=== PATIENT | female | born 1950 | race Caucasian/White ===

== ENCOUNTER 2020-09-17 12:30 | Outpatient (CLI) | payer MEDICARE, SELFPAY ==
[2020-09-17 13:28] LABS: SARS-CoV-2 Ag Negative (Negative)
== END 2020-09-17 12:31 | disposition home or self-care (01) ==
DX: Z20.828 Contact with and (suspected) exposure to other viral communicable diseases (principal)
CPT/HCPCS: 87426

== ENCOUNTER 2024-02-04 13:36 | Outpatient (RCR) | payer MEDICARE, SELFPAY ==
--- NOTE | 2024-02-04 15:05 | OPREHPOC ---
Outpatient Therapy Plan of Care This is a Multidisciplinary Plan of Care that may contain components documented by all disciplines (PT, OT, and ST.) PT Problem 1 PT Problem #1 Knowledge Deficit PT Goal 1 Goal Patient to demonstrate independence with HEP Target Visit 5 PT Problem 2 PT Problem #2 Impaired Strength PT Goal 1 Goal 1. Patient to demonstrate 5/5 strength of the B LE in order to return to stair navigation at PLOF Target Visit 10 PT Problem 3 PT Problem #3 Impaired Functional Mobil PT Goal 1 Goal 1. Patient to complete 1600' during 6 min walk test to return to grocery shopping 2. Patient to score 24 of Tinetti to demonstrate low fall risk 3. Patient to report ability to complete house hold tasks without instability of the L ankle Target Visit 10
--- NOTE | 2024-02-04 15:05 | PTOPEVAL1 ---
Assessment and note entered by Lawanda Hernandez DPT Evaluation Information Diagnosis L sided weakness Onset 01/29/24 Subjective Information Patient reports she had a stroke in October and was in the hospital for 3 weeks. She reports that most weakness is in the L ankle and L hand. She reports she would be willing do also do OT. She reports she is wearing a brace on the L ankle for stability but reports she can take it off at any time. She reports that walking and general LE weakness are her biggest issues. She reports she lives home alone and is completing all activities. She reports she is back to driving. She has no follow up with MD scheduled. Reported Pain Level Pain Score 0: Self Report Assessment PT Clinical Summary Ms. Quintana is a 73 year old female who presents to PT with L sided weakness following stroke in Oct 2023. She demonstrates decreased L LE strength and impaired ability limiting her ability to navigate prolonged distances, stand for prolonged periods to complete house hold tasks and navigate stairs without onset of fatigue. She would benefit from skilled PT to address impairments and return to PLOF. Plan of Care Interventions Electrical Stimulation,Gait Training,Hot Pack/Cold Pack,Neuro Re-education,Patient/Caregiver Educati ,Therapeutic Activities,Therapeutic Exercise PT Services Indicated Yes Treatment Frequency and 2x weekly for 10 visits Duration These treatments will address the objective and functional deficits as defined above. The patient will be advanced safely and appropriately in order for the patient to progress towards his/her prior level of function. Additional exercises will be introduced and as well as a comprehensive home exercise program upon discharge, if needed, ?to ensure carryover of functional gains achieved in the clinic. This treatment plan has been reviewed and agreement upon by the patient.
--- NOTE | 2024-02-09 11:54 | OTOPEVAL1 ---
Assessment and note entered by Carisa Carbajal OT Evaluation Information Assessment Status Evaluation Diagnosis Stroke Onset October 2023 Subjective Information The patient goes by Luis. The patient stated she had a stroke in October 2023 where she has been experiencing difficulty with L hand. She reported she sometimes drops things at home and can have some numbness occasionally in L hand. She reports that she notices some difficulties with memory and her speech can get slurred when she gets tired with good awareness. Therapist educated patient on speech therapy for speech problems and cognition to address within 6 months to a year of having stroke with best outcomes. OT to address cognition at this time due to not seeing speech therapy; patient educated on importance of therapy. The enjoys playing cards and has a hard time holding them. Reported Pain Level Pain Score 0: Self Report Assessment OT Clinical Summary The patient is a 73 year old female who was referred to outpatient OT due to stroke in October 2023. The patient demonstrates good functional balance during community mobility into therapy gym . 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 The patient requires skilled OT to address fine motor coordination, summer school coordinator/pinch strength and cognition for return to PLOF and increased ability to engage in daily tasks with safety and accuracy. Plan of Care Interventions Therapeutic Exercise,Neuro Re-education, Therapeutic Activities,Cognitive Function,Sensory Integrative Techn,Self-Care/Home Management OT Services Indicated Yes Treatment Frequency and 2x/week for 10 visits. Duration These treatments will address the objective and functional deficits as defined above. The patient will be advanced safely and appropriately in order for the patient to progress towards his/her prior level of function. Additional exercises will be introduced and as well as a comprehensive home exercise program upon discharge, if needed, ?to ensure carryover of functional gains achieved in the clinic. This treatment plan has been reviewed and agreement upon by the patient.
--- NOTE | 2024-03-09 08:52 | PTOPPROG ---
Assessment and note entered by Billy [facility] Evaluation Information Assessment Status Progress Diagnosis L sided weakness Onset 01/29/24 Subjective Information Pt. reports that she is doing better. She reports that she could still benefit from therapy. she notices some remaining weakness in the left leg. She states that would like to continue to improve her l.e. strength. Assessment PT Clinical Summary Pt. demonstrates progress in regards to strength and balance. She still presents with gait and strength deficits indicating need for continued skilled PT. We will continue to address foot clearance and strength to allow for safe and independent IADL's. Plan of Care Interventions Electrical Stimulation,Gait Training,Manual Therapy,Neuro Re-education,Patient/Caregiver Educati,Therapeutic Activities,Therapeutic Exercise PT Services Indicated Yes Treatment Frequency and 2x/week x 8 visits Duration These treatments will address the objective and functional deficits as defined above. The patient will be advanced safely and appropriately in order for the patient to progress towards his/her prior level of function. Additional exercises will be introduced and as well as a comprehensive home exercise program upon discharge, if needed, ?to ensure carryover of functional gains achieved in the clinic. This treatment plan has been reviewed and agreement upon by the patient.
--- NOTE | 2024-03-11 11:58 | OTOPDC ---
Assessment and note entered by Carisa Carbajal OT Evaluation Information Assessment Status Discharge Subjective Information The patient reports that sometimes her hand works better than others and some days it does not work very well. The patient reports that she sometimes does her exercises but not as much as she should. She reports she is comfortable with being discharged with HEP and therapist educated patient on the importance of continuing with exercises and activity at home. Reported Pain Level Pain Score 0: Self Report Assessment OT Clinical Summary The patient demonstrates significant progress in cart pusher strength, pinch strength, fine motor coordination, motor planning, and memory demonstrating increased independence with ADLs, IADLs and leisure tasks requiring fine motor coordination. The patient met most of her goals and demonstrates functional improvement in L UE strength and coordination. The patient was educated on UE HEP for maintaining progress at home with good understanding and carryover. The patient is discharged with UE HEP. Plan of Care OT Services Indicated No
--- NOTE | 2024-04-13 16:47 | OPREHPOC ---
Outpatient Therapy Plan of Care This is a Multidisciplinary Plan of Care that may contain components documented by all disciplines (PT, OT, and ST.) PT Problem 1 PT Problem #1 Knowledge Deficit PT Goal 1 Goal Patient to demonstrate independence with HEP Target Visit 5 Progress Met PT Problem 2 PT Problem #2 Impaired Strength PT Goal 1 Goal 1. Patient to demonstrate 5/5 strength of the B LE in order to return to stair navigation at PLOF Target Visit 22 Progress Partially Met Comment continue PT Problem 3 PT Problem #3 Impaired Functional Mobil PT Goal 1 Goal 1. Patient to complete 1600' during 6 min walk test to return to grocery shopping -not met 2. Patient to score 24 of Tinetti to demonstrate low fall risk -met 3. Patient to report ability to complete house hold tasks without instability of the L ankle - met Target Visit 22 Progress Partially Met Comment continue goal 1 OT Problem 1 OT Problem #1 Knowledge Deficit OT Goal 1 Goal The patient will demonstrate 100% knowledge and return demonstration for UE HEP and cognitive techniques to use at home to maximize independence . Target Visit 10 Progress Met OT Problem 2 OT Problem #2 Impaired Coordination OT Goal 1 Goal The patient will demonstrate increased fine motor coordination of L UE by performing 9 hole peg test in <30 seconds for ability to perform grooming tasks with accuracy. Target Visit 10 Progress Partially Met OT Goal 2 Goal The patient will demonstrate increased motor planning of L UE by demonstrating no impairment in supination/pronation diodochonesis for increased ability to hold cards and engage in leisure activities for quality of life. Target Visit 10 Progress Partially Met OT Problem 3 OT Problem #3 Impaired Strength
--- NOTE | 2024-04-13 16:47 | PTOPPROG ---
Assessment and note entered by Huma Jiménez, PT Evaluation Information Assessment Status Discharge Diagnosis L sided weakness Onset 01/29/24 Subjective Information Allyson Quintana reports her left leg is getting stronger but she still has some weakness. She is able to go up and down stairs step over step now with a handrail. She reports she goes up and down stairs about 2 times a week to do laundry. She denies falls. She reports she would like to continue skilled PT because she is afraid she won' t have the motivation to continue exercises on her own. Assessment PT Clinical Summary Allyson Quintana has completed 18 skilled PT visits for left sided weakness following a CVA. She is reporting no pain and has not had any falls. She feels her strength is improving however, she is still a little weak in the left leg. She is able to go up and down stairs reciprocally but uses the handrail. She objectively demonstrates improved strength, improved endurance, and improved balance . She is still demonstrating weakness in the left hip and did not meet her goal on the 6 minute walk test. She will continue to benefit from skilled PT to maintain current improvements since the patient is not motivated to exercise on her own and to further improve strength and endurance. Plan of Care Interventions Neuro Re-education,Patient/Caregiver Educati, Therapeutic Activities,Therapeutic Exercise PT Services Indicated Yes Treatment Frequency and Continue 1 time a week for 4 visits Duration These treatments will address the objective and functional deficits as defined above. The patient will be advanced safely and appropriately in order for the patient to progress towards his/her prior level of function. Additional exercises will be introduced and as well as a comprehensive home exercise program upon discharge, if needed, ?to ensure carryover of functional gains achieved in the clinic. This treatment plan has been reviewed and agreement upon by the patient.
== END 2024-04-27 20:00 | disposition still patient (30) ==
LOC: CHSPT 13:36
DX: I69.953 Hemiplegia and hemiparesis following unspecified cerebrovascular disease affecting right non-dominant side (principal)
CPT/HCPCS: 97110; 97112; 97161; 97166; 97530; 97750

== ENCOUNTER 2024-03-21 17:51 | Emergency (ER) | payer MEDICARE, SELFPAY ==
--- NOTE | ~2024-03-21 | CT_ITS ---
EXAMINATION: CT abdomen pelvis wo con DATE: 03/21/2024 18:42 INDICATION: rectal bleeding/back pain TECHNIQUE: Computed tomography (CT) of the abdomen and pelvis was performed without intravenous contr ast. Automated exposure control and iterative reconstruction technique were employed. The dose-length product was 519.38 mGy-cm. COMPARISON: None. FINDINGS: Lower thorax: Cardiomegaly. Mild coronary artery calcification. Liver: Normal. Biliary/Gallbladder: Gallbladder is normal. No bile duct dilation. Pancreas: Moderate atrophy. Spleen: Normal. Adrenals:No mass. Kidneys: Simple 4.6 cm left lower pole cyst. Mild bilateral hydronephrosis, slightly greater on the r ight. GI tract: No small or large bowel dilation. Large volume of colonic fecal material. Appendix not visu alized. Diverticulosis without diverticulitis. Mesentery/Peritoneum: No ascites, mass, or free air. Retroperitoneum: No mass. Atherosclerotic abdominal aortic and/or arterial calcifications. Pelvis: Urinary bladder wall thickening and inflammatory change. Absent uterus. Ovaries not visualize d. Soft Tissues: Soft tissues and body wall unremarkable. Bones: No acute osseous finding. IMPRESSION: Cystitis. Mild bilateral hydronephrosis may be related to ascending infection. No obstructing mass or stone. Large volume of colonic fecal material, correlate for clinical findings of constipation. No other acute abdominopelvic process detected. Reviewed, dictated and finalized at location K. IMPRESSION: Cystitis. Mild bilateral hydronephrosis may be related to ascending infection. No obstructing mass or stone. Large volume of colonic fecal material, correlate for clinical findings of cons tipation. No other acute abdominopelvic process detected.
--- NOTE | 2024-03-21 18:03 | ED.GIBLEED ---
HPI - GI Bleed General Chief complaint: GI Bleed Stated complaint: RECTAL BLEEDING Source: patient Mode of arrival: ambulatory Limitations: no limitations History of Present Illness HPI Narrative: patient is a 73-year-old female with some bright red blood per rectum noted on the toilet paper since yesterday. She has some lower back pain. She is on Eliquis for stroke. Her primary doctor sent her to the ER for further evaluation. MD complaint: blood on toilet paper and blood streaked stool Onset (ago): day(s) (2) Pain Consistency: intermittent Severity: mild Relieving factors: none Exacerbating factors: none Context: hemorrhoids and other ( Patient is on Eliquis for a CVA) Associated symptoms: other ( lumbar pain) Treatments Prior to Arrival: none Related Data Home Medications Medication Instructions Recorded Confirmed amlodipine 5 mg tablet mg 03/21/24 apixaban 5 mg tablet (Eliquis) mg 03/21/24 ergocalciferol (vitamin D2) 1,250 03/21/24 mcg (50,000 unit) capsule metoprolol tartrate 50 mg tablet mg 03/21/24 03/21/24 Allergies Allergy/AdvReac Type Severity Reaction Status Date / Time No Known Allergies Allergy Verified 03/21/24 18:11 Review of Systems Review of Systems: All systems reviewed & are unremarkable except as noted in HPI and below Constitutional: Constitutional: Reports no additional constitutional complaints Eyes: Eyes: Reports no additional eye complaints ENT: Reports system reviewed and no additional complaints, except as documented Cardiovascular: Cardiovascular: Reports no additional cardiovascular complaints Respiratory: Respiratory: Reports no additional respiratory complaints Gastrointestinal: Gastrointestinal: Reports no additional gastrointestinal complaints Genitourinary: Genitourinary: Reports no additional female genitourinary complaints Musculoskeletal: Musculoskeletal: Reports no additional musculoskeletal complaints Integumentary/Breasts: Skin/Breast: Reports system reviewed and no additional complaints, except as docu Neurologic: Reports system reviewed and no additional complaints, except as documented Psychiatric: Psychiatric: Reports no additional psychiatric complaints Endocrine: Endocrine: Reports no additional endocrine complaints Hematologic/Lymphatic: Hematologic/Lymphatic: Reports no additional hematologic/lymphatic complaints Allergic/Immunologic: Allergic/Immunologic: Reports no additional allergic/immunologic complaints Exam Const: General: healthy appearing Nutritional Appearance: well nourished Orientation/consciousness: patient oriented x3 HENMT: Head: normal to inspection Ears: external ears normal Face/Nose/Sinus: Normal external nose present Eyes: Conjunctivae: conjunctivae normal Pupils: Equal, round and reactive pupils present EOM: EOMs intact bilaterally Neck: Neck: normal visual inspection Chest: Chest palpation & inspection: normal inspection of the chest Resp: Effort & Inspection: normal respiratory effort and not labored Auscultation: clear to auscultation bilaterally Cardio: Rate: regular rate Rhythm: regular rhythm Heart sounds: no murmurs GI: Inspection: non-distended GI Palp: Yes Soft to palpation and No Tenderness to palpation present (GI) Auscultation: normal bowel sounds Rectal Exam: normal sphincter tone, No Abnormal stool present and hemorrhoids Other: pending stool for heme : General: Yes bladder normal to palpation Back/Spine/Pelvis: Back: no CVA tenderness Skin: General skin exam: normal color Rashes: no rashes Wounds: no wounds Neuro: General: patient oriented x3 Cranial nerves: Yes Nystagmus not present Speech: normal speech Extrem: General: normal to inspection Psych: Mental Status: mental status grossly normal Affect: normal affect Attitude: cooperative Course Vital Signs Vital signs: Vital Signs Temperature 36.9 C 03/21/24 18:10 Pulse Rate 74 03/21/24 18:10 Resp
[2024-03-21 18:10] VITALS: BP 128/80; PULSE 74; RESP 14; TEMP 36.9; O2SAT 98
[2024-03-21 18:32] LABS: Basophils Absolute Auto 0.06 K/mm3 (0.00-0.10); Basophils Percent Auto 0.6 % (0.0-1.0); Eosinophils Absolute Auto 0.27 K/mm3 (0.02-0.50); Eosinophils Percent Auto 2.9 % (1.0-6.0); Hematocrit 46.3 % (35.0-42.0); Hemoglobin 14.8 g/dL (11.7-13.8); Immature Granulocyte Absolute 0.03 K/mm3 (0.00-0.00); Immature Granulocyte Percent A 0.3 % (0.0-0.0); Mean Corpuscular Hemoglobin 29.6 pg (27.0-31.0); Mean Corpuscular Volume 92.6 fL (78.0-102.0); Mean Platelet Volume 10.3 fl (9.2-11.8); Monocytes Absolute Auto 0.87 K/mm3 (0.10-0.90); Monocytes Percent Auto 9.3 % (2.0-11.0); Neutrophils Absolute Auto 6.72 K/mm3 (1.70-7.20); Neutrophils Percent Auto 71.9 % (50.0-70.0); Platelet Count Result 286 K/mm3 (150-420); Red Cell Distribution Width 13.2 % (11.6-14.4); White Blood Count 9.4 K/mm3 (4.8-10.8)
[2024-03-21 18:35] LABS: Occult Blood Positive (Negative)
[2024-03-21 18:47] LABS: Partial Thromboplastin Time 29.4 Sec (23.9-30.70); Prothrombin Time 11.3 Seconds (9.50-12.1)
[2024-03-21 18:50] LABS: Alanine Aminotransferase 17 U/L (14-59); Albumin Level 3.3 g/dL (3.4-5.0); Alkaline Phosphatase 69 U/L (46-116); Anion Gap 9 mmol/L (4-12); Aspartate Amino Transferase 20 U/L (15-37); Blood Urea Nitrogen 16 mg/dL (7-18); Calcium 9.2 mg/dL (8.5-10.1); Carbon Dioxide 28 mmol/L (21-32); Chloride 104 mmol/L (98-108); Estimated CRCL calculation 47 ml/min; Estimated Glomerular Filt Rate > 60; Glucose 82 mg/dL (70-99); Osmolality Calculated 292 mOsm/kg (285-295); Potassium 3.5 mmol/L (3.5-5.1); Sodium 141 mmol/L (136-145)
[2024-03-21] MEDS: cefTRIAXone 1 GM, LIDOCAINE HCL 1% LOCAL INJ 2.1 ML IM (19:15)
[2024-03-21 19:19] VITALS: BP 131/62; PULSE 75; RESP 14; TEMP 36.6; O2SAT 99
== END 2024-03-21 19:19 | disposition home or self-care (01) ==
PROVIDERS: Emergency Provider Emergency Medicine
DX: N10 Acute pyelonephritis (principal); K62.5 Hemorrhage of anus and rectum; K59.00 Constipation, unspecified; Z79.01 Long term (current) use of anticoagulants
CPT/HCPCS: 36415; 74176; 80053; 82272; 83605; 85025; 85610; 85730; 96372; 99284; J0696

== ENCOUNTER 2024-05-05 13:02 | Outpatient (RCR) | payer MEDICARE, SELFPAY ==
--- NOTE | 2024-05-09 15:01 | OPREHPOC ---
Outpatient Therapy Plan of Care This is a Multidisciplinary Plan of Care that may contain components documented by all disciplines (PT, OT, and ST.) PT Problem 1 PT Problem #1 Knowledge Deficit PT Goal 1 Goal Patient to demonstrate independence with HEP Target Visit 5 Progress Met PT Problem 2 PT Problem #2 Impaired Strength PT Goal 1 Goal 1. Patient to demonstrate 5/5 strength of the B LE in order to return to stair navigation at PLOF Target Visit 22 Progress Met PT Problem 3 PT Problem #3 Impaired Functional Mobil PT Goal 1 Goal 1. Patient to complete 1600' during 6 min walk test to return to grocery shopping -partially met (completed 1,300 feet) 2. Patient to score 24 of Tinetti to demonstrate low fall risk -met 3. Patient to report ability to complete house hold tasks without instability of the L ankle - met Target Visit 22 Progress Partially Met OT Problem 1 OT Problem #1 Knowledge Deficit OT Goal 1 Goal The patient will demonstrate 100% knowledge and return demonstration for UE HEP and cognitive techniques to use at home to maximize independence . Target Visit 10 Progress Met OT Problem 2 OT Problem #2 Impaired Coordination OT Goal 1 Goal The patient will demonstrate increased fine motor coordination of L UE by performing 9 hole peg test in <30 seconds for ability to perform grooming tasks with accuracy. Target Visit 10 Progress Partially Met OT Goal 2 Goal The patient will demonstrate increased motor planning of L UE by demonstrating no impairment in supination/pronation diodochonesis for increased ability to hold cards and engage in leisure activities for quality of life. Target Visit 10 Progress Partially Met OT Problem 3 OT Problem #3 Impaired Strength OT Goal 1 Goal The patient will demonstrate increased administrative manager and
--- NOTE | 2024-05-09 15:01 | PTOPDC ---
Assessment and note entered by Huma Jiménez, PT Evaluation Information Assessment Status Progress Diagnosis L sided weakness ICD-10 Condition Codes (PT) Weakness R53.1 Onset 01/29/24 Subjective Information Allyson Quintana reports she is doing better and she feels stronger. She is able to complete all previous activities including going up and down stairs to do laundry. Reported Pain Level Pain Score 0: Self Report Assessment PT Clinical Summary Allyson Quintana has completed 22 skilled PT visits. She is reporting ability to perform all previous activities and notes improved LE strength. She objectively demonstrates good static and dynamic balance, improved gait, improved endurance, and improved LE strength. She will be discharged to an independent [facility] and was given information on our Fall Prevention Class. Plan of Care PT Services Indicated No
--- NOTE | 2024-05-09 15:02 | PTOPDC ---
Assessment and note entered by Huma Jiménez, PT Evaluation Information Assessment Status Discharge Diagnosis L sided weakness ICD-10 Condition Codes (PT) Weakness R53.1 Onset 01/29/24 Subjective Information Allyson Quintana reports she is doing better and she feels stronger. She is able to complete all previous activities including going up and down stairs to do laundry. Reported Pain Level Pain Score 0: Self Report Assessment PT Clinical Summary Allyson Quintana has completed 22 skilled PT visits. She is reporting ability to perform all previous activities and notes improved LE strength. She objectively demonstrates good static and dynamic balance, improved gait, improved endurance, and improved LE strength. She will be discharged to an independent [facility] and was given information on our Fall Prevention Class. Plan of Care PT Services Indicated No
== END 2024-05-09 15:19 | disposition home or self-care (01) ==
LOC: CHSPT 13:02
DX: I69.953 Hemiplegia and hemiparesis following unspecified cerebrovascular disease affecting right non-dominant side (principal)
CPT/HCPCS: 97110; 97112; 97750

== ENCOUNTER 2025-09-04 13:24 | Emergency (ER) | payer MEDICARE, SELFPAY ==
[2025-09-04 13:29] VITALS: BP 135/77; PULSE 75; RESP 18; TEMP 36.6; O2SAT 100
[2025-09-04 13:41] LABS: Hematocrit 47.2 % (35.0-42.0); Hemoglobin 15.2 g/dL (11.7-13.8); Immature Granulocyte Percent A 0.3 % (0.0-0.0); Lymphocytes Absolute Auto 1.50 K/mm3 (1.10-4.50); Mean Corpuscular HGB Conc 32.2 g/dL (32-36); Mean Corpuscular Hemoglobin 30.2 pg (27.0-31.0); Mean Corpuscular Volume 93.8 fL (78.0-102.0); Nucleated Red Blood Cells Absolute Auto 0.00 K/mm3 (0.00-0.00); Nucleated Red Blood Cells Perc 0.0 % (0-0.0); Platelet Count Result 292 K/mm3 (150-420); Red Blood Count 5.03 M/mm3 (4.20-5.40); White Blood Count 6.7 K/mm3 (4.8-10.8)
[2025-09-04] MEDS: PHENYLEPHRINE HCL 0.5% NA SPRAY 15 ML BTL (*BKC) 1 SPRAY EACH NARE (13:54)
[2025-09-04 14:00] LABS: INR 1.1; Prothrombin Time 11.7 Seconds (9.50-12.1)
[2025-09-04 14:54] LABS: Anion Gap 10 mmol/L (4-12); Blood Urea Nitrogen 11 mg/dL (7-17); Calcium 9.3 mg/dL (8.4-10.2); Carbon Dioxide 25 mmol/L (22-30); Chloride 108 mmol/L (98-107); Estimated CRCL calculation 43 ml/min; Estimated Glomerular Filt Rate 58; Glucose 146 mg/dL (65-110); Osmolality Calculated 298 mOsm/kg (285-295); Potassium 4.0 mmol/L (3.4-5.0); Sodium 143 mmol/L (137-145)
[2025-09-04 15:11] VITALS: BP 140/82; PULSE 64; RESP 18; TEMP 36.6; O2SAT 98
--- NOTE | 2025-09-04 15:13 | ED.EPISTAXIS ---
HPI - Epistaxis General Chief complaint: Epistaxis Stated complaint: NOSE BLEED Time Seen by Provider: 09/04/25 13:26 Source: patient Mode of arrival: ambulatory Limitations: no limitations History of Present Illness HPI Narrative: 75-year-old with a history of AFib on Eliquis here with a complains bleeding from the right naris for past few hours. She denies any trauma. MD complaint: epistaxis Location: right nostril Onset (ago): hour(s) (2) Duration: intermittent Related Data Home Medications ?Medication ?Instructions ?Recorded ?Confirmed ?Last Taken ?Type amlodipine 5 mg tablet 5 mg PO DAILY 03/21/24 03/21/24 History apixaban 5 mg tablet (Eliquis) 5 mg PO Q12H 03/21/24 03/21/24 History ergocalciferol (vitamin D2) 1,250 1,250 mcg PO WEEKLY 03/21/24 03/21/24 History mcg (50,000 unit) capsule metoprolol tartrate 50 mg tablet 50 mg PO Q12H 03/21/24 03/21/24 03/21/24 History Allergies Allergy/AdvReac Type Severity Reaction Status Date / Time No Known Allergies Allergy Verified 09/04/25 13:33 Review of Systems Review of Systems: All systems reviewed & are unremarkable except as noted in HPI and below Constitutional: Constitutional: Reports no additional constitutional complaints Eyes: Eyes: Reports no additional eye complaints ENT: Reports as per HPI Cardiovascular: Cardiovascular: Reports no additional cardiovascular complaints Respiratory: Respiratory: Reports no additional respiratory complaints Gastrointestinal: Gastrointestinal: Reports no additional gastrointestinal complaints Genitourinary: Genitourinary: Reports no additional female genitourinary complaints Musculoskeletal: Musculoskeletal: Reports no additional musculoskeletal complaints Integumentary/Breasts: Skin/Breast: Reports system reviewed and no additional complaints, except as docu Exam Narrative: GENERAL: Well-appearing, well-nourished, and in no acute distress. HEAD: Normocephalic, atraumatic. EYES: PERRLA and EOMI. ENT: No active bleeding present through both the nares however the right anterior septum is mildly erythematous but do not see any bleeders. NECK: Supple. CHEST: Clear to auscultation. No respiratory distress. HEART: Regular rate and rhythm. No murmur heard. Normal peripheral pulses EXTREMITIES: Normal range of motion. No edema. SKIN: Warm, dry, no rash. NEURO: No focal deficits. Alert and oriented x3. PSYCH: Normal mood and affect. Course Course Emergency Course: Patient had no further bleed while she was here in the ER we did clamp the nose did spray Augustine-Synephrine nasal spray in both the nares observed her for quite some time did obtain lab work which was unremarkable. She had no further episodes of bleed. Re-examined the patient there is no active bleeding. Advised her to follow with the primary doctor or ENT. Vital Signs Vital signs: Vital Signs Temperature 36.6 C 09/04/25 13:29 Pulse Rate 75 09/04/25 13:29 Respiratory Rate 18 09/04/25 13:29 Blood Pressure 135/77 09/04/25 13:29 Pulse Oximetry 100 09/04/25 13:29 Oxygen Delivery Room Air 09/04/25 13:29 Temperature 36.6 C 09/04/25 13:29 Pulse Rate 75 09/04/25 13:29 Respiratory Rate 18 09/04/25 13:29 Blood Pressure 135/77 09/04/25 13:29 Pulse Oximetry 100 09/04/25 13:29 Oxygen Delivery Room Air 09/04/25 13:29 MDM - Epistaxis Differential Diagnosis Differential diagnosis: Likely anterior epistaxis and other (Hypertensive bleed, drug reaction) Medical Records Attestation: I reviewed the patient's medical records. Lab Data Attestation: I reviewed the patient's lab results. 09/04/25 13:37 09/04/25 13:37 Labs: Lab Results 09/04/25 Range/Units 13:37 WBC 6.7 (4.8-10.8) K/mm3 RBC 5.03 (4.20-5.40) M/mm3 Hgb 15.2 H (11.7-13.8) g/dL Hct 47.2 H (35.0-42.0) % MCV 93.8 (78.0-102.0) fL MCH 30.2 (27.0-31.0) pg MCHC 32.2 (32-36) g/dL RDW 13.4 (11.6-14.4) % Plt Count 292 (150-420) K/mm3 MPV 10.2 (9.2-11.8) fl Immature Gran % (Auto) 0.3 H (0.0-0.0) % Neut % (Auto) 67.5 (50.0-70.0) % Lymph % (Auto) 22.3 (18.0-42.0) % [place] % (Auto) 7.1 (2.0-11.0) % Eos % (Auto) 1.9 (1.0-6.0) % Baso % (Auto) 0.9 (0.0-1.0) % Lymph # (Auto) 1.50 (1.10-4.50) K/mm3 [place] # (Auto) 0.48 (0.10-0.90) K/mm3 Eos # (Auto) 0.13 (0.02-0.50) K/mm3 Baso # (Auto) 0.06 (0.00-0.10) K/mm3 Abs Immat Gran (auto) 0.02 H (0.00-0.00) K/mm3 Absolute Neuts (auto) 4.54 (1.70-7.20) K/mm3 Absolute Nucleated RBC 0.00 (0.00-0.00) K/mm3 Nucleated RBC % 0.0 (0-0.0) % PT 11.7 (9.50-12.1) Seconds INR 1.1 Sodium 143 (137-145) mmol/L Potassium 4.0 (3.4-5.0) mmol/L Chloride 108 H (98-107) mmol/L Carbon Dioxide 25 (22-30) mmol/L Anion Gap 10 (4-12) mmol/L BUN 11 (7-17) mg/dL Creatinine 0.94 (0.7-1.0) mg/dL Estim Creat Clear Calc 43 ml/min Estimated GFR 58 L (59 - ) Glucose 146 H (65-110) mg/dL Calculated Osmolality 298 H (285-295) mOsm/kg Calcium 9.3 (8.4-10.2) mg/dL Discharge Plan Discharge Clinical Impression: Epistaxis Patient Disposition: Home Condition: Stable Instructions: Nosebleed (ED) Additional Instructions: Use the nasal spray given to you twice a day., continue home medication, follow with her primary doctor. Do not take Eliquis tonight . Patient Language: Bel[place]ian Prescriptions: No Action amlodipine 5 mg tablet 5 mg PO DAILY metoprolol tartrate 50 mg tablet 50 mg PO Q12H ergocalciferol (vitamin D2) 1,250 mcg (50,000 unit) capsule 1,250 mcg PO WEEKLY Eliquis 5 mg tablet 5 mg PO Q12H Follow-up/Referrals: [facility] [Other] Chadd Jaramillo MD [Physician, Ear, Nose, Throat] Time of Disposition: 15:14
== END 2025-09-04 15:22 | disposition home or self-care (01) ==
PROVIDERS: Emergency Provider Family Medicine
DX: R04.0 Epistaxis (principal)
CPT/HCPCS: 36415; 80048; 85025; 85610; 99283; A9270